=== PATIENT | male | born 1955 | race Caucasian/White ===

== ENCOUNTER 2018-03-08 07:44 | Outpatient (REF) | payer OTHER, SELFPAY ==
[2018-03-08 14:06] LABS: ALT 28 U/L (12-78); AST 29 U/L (15-37); Albumin 3.8 g/dL (3.4-5.0); Alkaline Phosphatase 78 U/L (46-116); Anion Gap 9.3 mmol/L (3-11); BUN 7 mg/dL (7-18); Bilirubin, Total 0.4 mg/dL (0.2-1.0); CO2 25.7 mmol/L (21.0-32.0); CREATININE 0.78 mg/dL (0.70-1.30); Calcium 8.9 mg/dL (8.5-10.1); Chloride 107 mmol/L (98-107); Cholesterol 115 mg/dL (50-200); Glucose 110 mg/dL (70-100); HDL Cholesterol 36 mg/dL (40-60); LDL CHOLESTEROL 62 mg/dL (<100); Potassium 4.1 mmol/L (3.5-5.1); Sodium 142 mmol/L (136-145); Total Protein 6.5 g/dL (6.4-8.2); Triglyceride 94 mg/dL (30-150)
== END 2018-03-08 08:04 ==
LOC: NCHCN 07:44
PROVIDERS: PCP Family Medicine; Visit Provider Family Medicine
DX: E11.9 Type 2 diabetes mellitus without complications (principal); E78.5 Hyperlipidemia, unspecified
CPT/HCPCS: 80053; 80061; 83721

== ENCOUNTER 2018-03-23 08:56 | Outpatient (CLI) | payer MEDICARE, SELFPAY ==
[2018-03-23 09:14] VITALS: BP 117/72; PULSE 75; RESP 18; TEMP 37.2; O2SAT 99
[2018-03-23 09:47] VITALS: BP 171/88; PULSE 80; RESP 20; O2SAT 99
--- NOTE | 2018-03-23 09:51 | DI.RAD_ITS ---
SYMPTOM/DIAGNOSIS: LUMBAR RADICULOPATHY C-ARM: Fluoroscopy Time: 25.3 sec 8.76 mGy Fluoroscopy was utilized by Dr. Edge during the performance of a lumbar spine injection. Please refer to the procedure report for complete details.
--- NOTE | 2018-03-23 09:59 | PDOC.PAIN ---
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 He had one epidural steroid injection at [facility] in December which gave him only 2 weeks relief. CARLINE PINO has been referred to the [facility] for lumbar epidural steroid injection. The patient was greeted by the nurse who verified patients name and . Patient was then taken to the fluoroscopy suite. The patient was interviewed and the medial record reviewed. There were no medical, pharmacologic, radiographic, or other structural contraindications to attempting fluoroscopically guided lumbar epidural steroid injection. Risks and expected side effects as well as potential benefits of the procedure were reviewed and voiced concerns expressed. The patient consent form was signed and witnessed. Standard patient time-out procedure was performed. The patient was placed in the prone position on the fluoroscopy table and automated blood pressure cuff and pulse oximeter applied. The skin entry point for entering/approaching the epidural space by a {L4-5} and marked. Following thorough chlorhexadine preparation of the skin and draping and 1% lidocaine infiltration of the skin entry point and subcutaneous tissues, a 17 gauge Touhy needle was placed under fluoroscopic guidance and with loss of resistance technique into the epidural space. Needle tip placement and depth were aided and confirmed by fluoroscopy. There was no paresthesia or return of blood or CSF through the needle. 1 cc's of Omnipaque 240 was injected with clear epidural spread confirmed with fluoroscopy. 40mg depomedrol (80 mg/mL-patient was having pain on injection so I did not give the full 80) was injected. There was not any unusual discomfort expressed by CARLINE PINO. Patient's vital signs were stable throughout the procedure and were as recorded in nursing records. Follow up plans and appointments were discussed with patient. Post procedure instruction was given as documented in nursing records and having met discharge criteria and was discharged from the [facility]. COMMENTS: He will follow-up as needed. I would not repeat them less he has significant lasting relief. If he did I would do a transforaminal injection. He is not getting better he will follow-up in the spine center for surgical evaluation.
[2018-03-23] MEDS: Omnipaque 240 MG/ML 50 ML BTL IJ (10:09)
[2018-03-23] MEDS: methylPREDNISolone ACETATE 80 MG/ML VIAL IM (10:09)
== END 2018-03-23 09:16 ==
PROVIDERS: PCP Family Medicine; Visit Provider Anesthesiology Pain Medicine
DX: M48.062 Spinal stenosis, lumbar region with neurogenic claudication (principal)
CPT/HCPCS: 62323; 72100; J1040; Q9967

== ENCOUNTER 2018-07-04 01:43 | Outpatient (CLI) | payer MEDICARE, SELFPAY ==
--- NOTE | 2018-07-04 07:40 | DI.US_ITS ---
SYMPTOMS/DIAGNOSIS: F/U AAA, I171.4 ULTRASOUND OF THE ABDOMINAL AORTA: An aneurysm was detected on MRI of the lumbar spine. Atherosclerotic changes are noted throughout the abdominal aorta. There is a distal fusiform appearing abdominal aortic aneurysm measuring 4.5 cm in greatest dimension. It terminates at the bifurcation. The iliac arteries are normal in diameter. There is no significant mural thrombus. IMPRESSION: 4.5 cm distal abdominal aortic aneurysm.
== END 2018-07-04 02:03 ==
PROVIDERS: PCP Family Medicine; Visit Provider Family Medicine
DX: I71.4 Abdominal aortic aneurysm, without rupture (principal)
CPT/HCPCS: 76775

== ENCOUNTER 2019-01-10 09:59 | Outpatient (REF) | payer MEDICARE, SELFPAY ==
[2019-01-10 12:59] LABS: Anion Gap 12.3 mmol/L (3-11); BUN 16 mg/dL (7-18); CO2 23.7 mmol/L (21.0-32.0); CREATININE 0.72 mg/dL (0.70-1.30); Calcium 9.1 mg/dL (8.5-10.1); Chloride 104 mmol/L (98-107); Glucose 114 mg/dL (70-100); Potassium 4.3 mmol/L (3.5-5.1); Sodium 140 mmol/L (136-145)
== END 2019-01-10 10:19 ==
LOC: NCHCN 09:59
PROVIDERS: PCP Family Medicine; Visit Provider Family Medicine
DX: I10 Essential (primary) hypertension (principal)
CPT/HCPCS: 80048

== ENCOUNTER 2019-01-17 00:32 | Outpatient (CLI) | payer MEDICARE, SELFPAY ==
--- NOTE | 2019-01-17 08:21 | DI.US_ITS ---
SYMPTOM/DIAGNOSIS: AAA I 71.4 ABDOMINAL AORTIC ULTRASOUND Routine examination was performed. Comparison 07/04/18 There is a distal abdominal aortic aneurysm measuring 4.4 cm in maximal diameter. The right iliac artery measures 1.5 cm in maximal diameter. The left iliac artery measures 1 cm in maximal diameter. IMPRESSION: Stable distal abdominal aortic aneurysm.
== END 2019-01-17 00:52 ==
PROVIDERS: PCP Family Medicine; Visit Provider Family Medicine
DX: I71.4 Abdominal aortic aneurysm, without rupture (principal)
CPT/HCPCS: 76775

== ENCOUNTER 2019-12-27 09:03 | Outpatient (REF) | payer MEDICARE, SELFPAY ==
[2019-12-27 17:18] LABS: Anion Gap 13.4 mmol/L (3-11); BUN 17 mg/dL (7-18); CO2 21.6 mmol/L (21.0-32.0); CREATININE 0.73 mg/dL (0.70-1.30); Calcium 9.2 mg/dL (8.5-10.1); Chloride 102 mmol/L (98-107); Glucose 123 mg/dL (74-106); Potassium 3.8 mmol/L (3.5-5.1); Sodium 137 mmol/L (136-145)
== END 2019-12-27 09:23 ==
LOC: NCHCN 09:03
PROVIDERS: PCP Family Medicine; Visit Provider Family Medicine
DX: I10 Essential (primary) hypertension (principal)
CPT/HCPCS: 80048

== ENCOUNTER 2020-01-19 02:43 | Outpatient (CLI) | payer MEDICARE, SELFPAY ==
--- NOTE | 2020-01-19 | DI.US_ITS ---
EXAM: US AAA DIAGNOSTIC CLINICAL HISTORY: F/U 4.4 CM AAA,I71.4 COMPARISON: US US AAA diagnostic from 01/17/2019 FINDINGS: Abdominal Aorta: Proximal: 2.3 x 2.0 cm Mid: 2.0 x 2.1 cm Distal: 4.6 x 4.8 cm Iliac's: Right: 1.7 by 1.5 cm Left: 1 x 1 cm atherosclerotic disease is seen. IMPRESSION: Increase in size of distal abdominal aortic aneurysm, now 4.8 cm maximally. DATA REPOSITORY:
== END 2020-01-19 03:03 ==
PROVIDERS: PCP Family Medicine; Visit Provider Family Medicine
DX: I71.4 Abdominal aortic aneurysm, without rupture (principal)
CPT/HCPCS: 76775

== ENCOUNTER 2020-11-07 20:23 | Outpatient (REF) | payer MEDICARE, SELFPAY ==
[2020-11-07 16:01] LABS: Anion Gap 11.5 mmol/L (3-11); BUN 17 mg/dL (7-18); CO2 28.5 mmol/L (21.0-32.0); CREATININE 0.9 mg/dL (0.70-1.30); Chloride 100 mmol/L (98-107); Glucose 127 mg/dL (74-106); Potassium 4.3 mmol/L (3.5-5.1); Sodium 140 mmol/L (136-145)
== END 2020-11-07 20:24 | disposition home or self-care (01) ==
LOC: NCHCN 20:23
PROVIDERS: PCP Family Medicine; Visit Provider Family Medicine
DX: I10 Essential (primary) hypertension (principal)
CPT/HCPCS: 80048

== ENCOUNTER 2020-11-28 01:40 | Outpatient (CLI) | payer MEDICARE, SELFPAY ==
--- NOTE | 2020-11-28 | DI.US_ITS ---
Exam(s) US AAA DIAGNOSTIC EXAM: US AAA DIAGNOSTIC CLINICAL HISTORY: F/U AAA,I71.4 COMPARISON: No exams were available for comparison FINDINGS: Abdominal Aorta: Atherosclerotic calcification is noted along the aorta and iliac arteries. Proximal: 2.7 cm Mid: 2.6 cm Distal: 5.1 x 5.0 cm mild mural thrombus. Iliacs: Right: 1.2 cm this represents a mild increase in size when compared with the previous exam w here it measured 4.8 cm. Left: 1.8 cm The doppler velocities are within normal limits. No significant atherosclerotic disease is seen. IMPRESSION: Mild interval increase in size of distal abdominal aortic aneurysm, now 5.1 cm in maximal dimension.. DATA REPOSITORY:
--- NOTE | 2020-11-28 08:55 | DI.CTLCSR_ITS ---
Exam(s) CT CHEST LUNG CANCER SCREEN EXAM: CT CHEST LUNG CANCER SCREEN CLINICAL HISTORY: SCREENING FOR LUNG CA, HEAVY SMOKER, F17.210 TECHNIQUE: Imaging Protocol: Axial computed tomography images with coronal and sagittal reformatted images were created and reviewed COMPARISON: No exams were available for comparison FINDINGS: Tracheobronchial tree: Patent where visualized. No bronchiectasis or peribronchial thickening. Mediastinum and [place]: 1.5 x 2.5 centimeter anterior mediastinal lymph node, and tear to the ascending aorta. No additional enlarged lymph nodes. Pulmonary parenchyma: No consolidation or dominant measurable mass. Minimal emphysematous changes. N o significant fibrotic changes. No infiltrate. Lung Nodules: None. Pleura: No effusion or pneumothorax. Heart: The heart is not dilated. The coronary arteries are heavily calcified. Aorta: Thoracic aorta non-dilated.[id number] calcification. Upper abdomen: Status post cholecystectomy. Nonobstructing stone mid left kidney. Bones: Degenerative disc changes. Soft Tissues: Unremarkable. IMPRESSION: No evidence of pulmonary nodules. Lung RADS Cat 1 - Negative: No nodules and definitely benign nodules S-2.5 centimeter anterior mediastinal lymph node. No additional enlarged lymph nodes. Lung-RADS 1.0 CATEGORIES: Category 0 - Prior chest CT exam(s) being located for comparison. Category 1 - Annual screening in 12 months. No nodules or definitely benign nodules. Category 2 - Annual screening in 12 months. Benign appearance. Nodules with low likelihood of becomin g active cancer. Category 3 - 6-month follow-up. Probably benign. Short-term follow-up suggested. Nodules with low lik elihood of becoming active cancer. Category 4A - 3-month follow-up and CT/PET if >8 mm in size. Suspicious finding. Findings which requi re additional testing. Category 4B - Findings which require additional testing and tissue sampling. Modifier S- Potentially clinically significant findings (non lung cancer) RADIATION DOSE DELIVERED: 84.48mGy.cm Total DLP 1.84mGy CTDIvol DATA REPOSITORY: All CT scans at this facility are submitted to the National Radiology Data Registry (NRDR) Dose Index Registry (DIR) with the [employer] (ACR). RADIATION OPTIMIZATION: All CT scans at this facility use at least one of these dose optimization te chniques: automated exposure control; mA and/or kV adjustment per patient size (includes targeted exa ms where dose is matched to clinical indication); or iterative reconstruction.
== END 2020-11-28 02:00 ==
PROVIDERS: PCP Family Medicine; Visit Provider Family Medicine
DX: Z12.2 Encounter for screening for malignant neoplasm of respiratory organs (principal); F17.210 Nicotine dependence, cigarettes, uncomplicated; I71.4 Abdominal aortic aneurysm, without rupture
CPT/HCPCS: 71271; 76775

== ENCOUNTER → 2021-04-24 09:29 | Outpatient (BNVA) | payer MEDICARE, SELFPAY | PROVIDERS: PCP Family Medicine; Referring Provider Family Medicine; Visit Provider Physical Therapy Assistant | DX: I71.4 Abdominal aortic aneurysm, without rupture (principal); Z12.11 Encounter for screening for malignant neoplasm of colon; I10 Essential (primary) hypertension ==

== ENCOUNTER 2021-07-15 02:46 | Outpatient (CLI) | payer MEDICARE, SELFPAY ==
--- NOTE | 2021-07-15 | DI.US_ITS ---
Exam(s) US AAA DIAGNOSTIC EXAM: US AAA DIAGNOSTIC CLINICAL HISTORY: AAA I71.4, F/U 12/09 US, 5.1 CM COMPARISON: US US AAA DIAGNOSTIC from 11/28/2020 FINDINGS: Abdominal Aorta: Proximal: 2.7 x 2.6 cm Mid: 2.6 x 2.4 cm Distal: 5.2 x 5.3 cm. This compares to 5.1 x 5.0 on the prior examination. Iliac's: Right: 1.4 x 1.4 cm Left: 1.3 x 1.4 cm The doppler velocities are within normal limits. IMPRESSION: 5.2 x 5.3 cm dist abdominal aortic aneurysm. This has shown slight interval increase in size compare d to the prior examination. DATA REPOSITORY:
== END 2021-07-15 03:06 ==
PROVIDERS: PCP Family Medicine; Visit Provider Family Medicine
DX: I71.4 Abdominal aortic aneurysm, without rupture (principal)
CPT/HCPCS: 76775

== ENCOUNTER 2021-11-18 15:53 | Outpatient (REF) | payer MEDICARE, SELFPAY ==
[2021-11-18 19:43] LABS: Anion Gap 12.5 mmol/L (3-11); BUN 17 mg/dL (7-18); CO2 23.5 mmol/L (21.0-32.0); CREATININE 0.9 mg/dL (0.70-1.30); Calcium 9.1 mg/dL (8.5-10.1); Calculated LDL 82 mg/dL (<100); Chloride 103 mmol/L (98-107); Cholesterol 148 mg/dL (<200); Glucose 112 mg/dL (74-106); HDL Cholesterol 31 mg/dL (40-60); Potassium 4.2 mmol/L (3.5-5.1); Sodium 139 mmol/L (136-145); Triglyceride 179 mg/dL (<150)
== END 2021-11-18 15:54 | disposition home or self-care (01) ==
LOC: NCHCN 15:53
PROVIDERS: PCP Family Medicine; Visit Provider Family Medicine
DX: I10 Essential (primary) hypertension (principal); E78.5 Hyperlipidemia, unspecified
CPT/HCPCS: 80048; 80061

== ENCOUNTER → 2021-12-24 01:33 | Outpatient (CLI) | payer MEDICARE, SELFPAY ==
--- NOTE | 2021-12-24 | DI.US_ITS ---
Exam(s) US AAA DIAGNOSTIC EXAM: US AAA DIAGNOSTIC CLINICAL HISTORY: ABDOMINAL AORTIC ANEURYSM, I71.4, 5.3 CM ON 06/2021 US COMPARISON: US US AAA DIAGNOSTIC from 07/15/2021 FINDINGS: Abdominal Aorta: Proximal: 2.8 x 2.5 cm Mid: 2.3 x 2.5 cm Distal: 5.5 x 5.1 cm fusiform shape aneurysm with mild mural thrombus. Iliacs: Right: 1.4 cm Left: 1.8 cm The doppler velocities are within normal limits. No significant atherosclerotic disease is seen. IMPRESSION: Question of mild interval increase in size distal abdominal aortic aneurysm versus measurement air, n ow measuring maximally 5.5 cm. DATA REPOSITORY:
--- NOTE | 2021-12-24 | DI.CTLCSR_ITS ---
Exam(s) CT CHEST LUNG CANCER SCREEN EXAM: CT CHEST LUNG CANCER SCREEN CLINICAL HISTORY: SCREENING FOR LUNG CA, CURRENT SMOKER, F17.210 TECHNIQUE: Imaging Protocol: Axial computed tomography images with coronal and sagittal reformatted images were created and reviewed. Low dose screening protocol. COMPARISON: CT CT CHEST LUNG CANCER SCREEN from 11/28/2020 FINDINGS: Tracheobronchial tree: No bronchiectasis or mucus plugging.. Mediastinum and [place]: Stable soft tissue nodule anterior to the ascending aorta. No fluid collection . Pulmonary parenchyma: No consolidation or dominant measurable mass. Mild emphysematous changes. Lung Nodules: None. Pleura: No effusion. No pneumothorax. Heart: The heart is not dilated. coronary artery calcifications are seen. Aorta: Thoracic aorta non-dilated. Upper abdomen: Status post cholecystectomy. Unremarkable. Bones: Unremarkable for age. Soft Tissues: Unremarkable. IMPRESSION: No suspicious pulmonary nodules. Lung RADS Cat 1 - Negative: No nodules and definitely benign nodules Lung-RADS 1.0 CATEGORIES: Category 0 - Prior chest CT exam(s) being located for comparison. Category 1 - Annual screening in 12 months. No nodules or definitely benign nodules. Category 2 - Annual screening in 12 months. Benign appearance. Nodules with low likelihood of becomin g active cancer. Category 3 - 6-month follow-up. Probably benign. Short-term follow-up suggested. Nodules with low lik elihood of becoming active cancer. Category 4A - 3-month follow-up and CT/PET if >8 mm in size. Suspicious finding. Findings which requi re additional testing. Category 4B - Findings which require additional testing and tissue sampling. Category 4X - Category 3 or 4 nodules with additional features or imaging findings that increases the suspicion of malignancy. Modifier S- Potentially clinically significant findings (non lung cancer) RADIATION DOSE DELIVERED: 92.38mGy.cm Total DLP 2.21mGy CTDIvol DATA REPOSITORY: All CT scans at this facility are submitted to the National Radiology Data Registry (NRDR) Dose Index Registry (DIR) with the [employer] (ACR). RADIATION OPTIMIZATION: All CT scans at this facility use at least one of these dose optimization te chniques: automated exposure control; mA and/or kV adjustment per patient size (includes targeted exa ms where dose is matched to clinical indication); or iterative reconstruction.
== END ==
PROVIDERS: PCP Family Medicine; Visit Provider Family Medicine
DX: Z12.2 Encounter for screening for malignant neoplasm of respiratory organs (principal); F17.210 Nicotine dependence, cigarettes, uncomplicated
CPT/HCPCS: 71271; 76775

== ENCOUNTER 2022-04-07 22:45 | Outpatient (REF) | payer MEDICARE, SELFPAY ==
[2022-04-07 20:02] LABS: HCT 43.2 % (40.0-50.0); HGB 14.9 g/dL (13.5-17.5); MCH 32.7 pg (27.0-33.0); MCHC 34.5 % (32.0-36.0); MCV 95 fL (80-95); MPV 11.6 fL (8.0-11.0); Platelet Count 220 10^3/uL (130-400); RBC 4.56 10^6/uL (4.36-5.78); RDW 12.7 % (11.8-14.1); WBC 8.71 10^3/uL (4.4-10.8)
[2022-04-07 20:12] LABS: Anion Gap 8.3 mmol/L (3-11); BUN 22 mg/dL (7-18); CO2 25.7 mmol/L (21.0-32.0); CREATININE 1.1 mg/dL (0.70-1.30); Calcium 9.2 mg/dL (8.5-10.1); Chloride 104 mmol/L (98-107); Estimated GFR 72.67 (mL/min/1.73m2); Glucose 115 mg/dL (74-106); Potassium 4.3 mmol/L (3.5-5.1); Sodium 138 mmol/L (136-145)
[2022-04-07 20:37] LABS: Hemoglobin A1C 6.3 % (<5.7)
== END 2022-04-07 22:46 | disposition home or self-care (01) ==
LOC: NCHCN 22:45
PROVIDERS: PCP Family Medicine; Visit Provider Family Medicine
DX: R73.03 Prediabetes (principal); I10 Essential (primary) hypertension; I71.40 Abdominal aortic aneurysm, without rupture, unspecified; F17.210 Nicotine dependence, cigarettes, uncomplicated
CPT/HCPCS: 80048; 85027; 83036

== ENCOUNTER 2022-07-08 09:47 | Outpatient (REF) | payer MEDICARE, SELFPAY ==
[2022-07-08 15:28] LABS: HCT 39.8 % (40.0-50.0); HGB 13.7 g/dL (13.5-17.5); MCH 30.9 pg (27.0-33.0); MCHC 34.4 % (32.0-36.0); MCV 90 fL (80-95); MPV 10.2 fL (8.0-11.0); Platelet Count 335 10^3/uL (130-400); RBC 4.44 10^6/uL (4.36-5.78); RDW 13.7 % (11.8-14.1); RDW-SD 44.9 fL; WBC 8.11 10^3/uL (4.4-10.8)
[2022-07-08 15:43] LABS: ALT 21 U/L (16-63); AST 19 U/L (15-37); Albumin 3.7 g/dL (3.4-5.0); Alkaline Phosphatase 139 U/L (46-116); Anion Gap 8.9 mmol/L (3-11); BUN 10 mg/dL (7-18); Bilirubin, Total 0.4 mg/dL (0.2-1.0); CO2 29.1 mmol/L (21.0-32.0); CREATININE 0.8 mg/dL (0.70-1.30); Calcium 9.8 mg/dL (8.5-10.1); Calculated LDL 70 mg/dL (<100); Chloride 98 mmol/L (98-107); Cholesterol 132 mg/dL (<200); Glucose 115 mg/dL (74-106); HDL Cholesterol 40 mg/dL (40-60); Potassium 4.1 mmol/L (3.5-5.1); Sodium 136 mmol/L (136-145); Total Protein 7.5 g/dL (6.4-8.2); Triglyceride 111 mg/dL (<150)
== END 2022-07-08 09:48 | disposition home or self-care (01) ==
LOC: NCHCN 09:47
PROVIDERS: PCP Family Medicine; Visit Provider Family Medicine
DX: I71.40 Abdominal aortic aneurysm, without rupture, unspecified (principal); F10.10 Alcohol abuse, uncomplicated; E78.5 Hyperlipidemia, unspecified; R58 Hemorrhage, not elsewhere classified; E11.40 Type 2 diabetes mellitus with diabetic neuropathy, unspecified; I10 Essential (primary) hypertension
CPT/HCPCS: 80053; 80061; 85027

== ENCOUNTER → 2023-03-15 14:21 | Outpatient (BNVA) | payer MEDICARE, SELFPAY | PROVIDERS: PCP Family Medicine; Referring Provider Family Medicine; Visit Provider Surgery | DX: M62.58 Muscle wasting and atrophy, not elsewhere classified, other site (principal); E11.9 Type 2 diabetes mellitus without complications; K29.70 Gastritis, unspecified, without bleeding; I71.40 Abdominal aortic aneurysm, without rupture, unspecified | CPT/HCPCS: 99213; 99243 ==

== ENCOUNTER → 2023-04-14 01:00 | Outpatient (CLI) | payer MEDICARE, SELFPAY ==
--- NOTE | 2023-04-14 07:41 | DI.CT_ITS ---
Exam(s) CT CHEST/ABD/PEL WO EXAM: CT CHEST/ABD/PEL WO CLINICAL HISTORY: hernia,GASTRITIS,AAA,SMOKER,CARDIOMEGALY,I51.7. TECHNIQUE: Imaging Protocol: Axial computed tomography images with coronal and sagittal reformatted images were created and reviewed CONTRAST MATERIAL: No IV contrast. Oral: yes / COMPARISON: CT CT CHEST LUNG CANCER SCREEN from 11/28/2020 US US AAA DIAGNOSTIC from 12/24/[address] CHEST LUNG CANCER SCREEN from 12/24/2021 FINDINGS: CHEST: Tracheobronchial tree: Patent where visualized. Pulmonary parenchyma: No consolidation or dominant measurable mass. Pleura: No effusion or pneumothorax. Lymph nodes: Within normal limits. Aorta: Thoracic portion non-dilated. Mild atherosclerotic changes. Heart: Dilated left ventricle. Severe coronary artery calcifications. No pericardial effusions. Mediastinum: Stable area of nodularity in the anterior mediastinum Bones: Unremarkable for age. No lytic or blastic lesions.No compression fractures. ABDOMEN and PELVIS: Liver: Normal density. No measurable mass. Gallbladder and biliary tract: Status post cholecystectomy. No evidence of stones or wall thickening . No biliary dilatation. Pancreas: Normal density, no abnormal calcifications or inflammatory process. Spleen: Normal. Kidneys: Normal size, contour and axis. Nonobstructing stones lower pole left kidney. No suspicious masses seen. Adrenal glands: No masses seen. Aorta: Stent now in place in aorta, new since prior ultrasound.. Maximal dimension 3.8 cm inferior portion. Underlying atherosclerotic changes. Lymph nodes: Within normal limits. Soft tissues: Bilateral iliopsoas bursitis. Bladder: Unremarkable. Bowel: No obstruction or bowel wall thickening. Stomach unremarkable. No visible ulcer. Mild divert iculosis lower descending colon. No diverticulitis. No visible mass. Peritoneal cavity: No ascites. No focal collection or mesenteric inflammatory response. Bones: Degenerative changes in the spine. Reproductive organs: Within normal limits. IMPRESSION: Chest CT: Dilated left ventricle.. No acute abnormality. Abdomen pelvis CT: Left renal calculi. A aortic aneurysm repair. No acute abnormality. RADIATION DOSE DELIVERED: Total DLP DATA REPOSITORY: All CT scans at this facility are submitted to the National Radiology Data Registry (NRDR) Dose Index Registry (DIR) with the [employer] (ACR). RADIATION OPTIMIZATION: All CT scans at this facility use at least one of these dose optimization te chniques: automated exposure control; mA and/or kV adjustment per patient size (includes targeted exa ms where dose is matched to clinical indication); or iterative reconstruction.
[2023-04-14] MEDS: Barium Sulfate 2% W/V-Creamy Vanilla Smoothie 450 ML BTL 900 ML PO (07:56)
== END ==
PROVIDERS: PCP Family Medicine; Visit Provider Surgery
DX: K29.70 Gastritis, unspecified, without bleeding (principal); E78.5 Hyperlipidemia, unspecified; I71.40 Abdominal aortic aneurysm, without rupture, unspecified; I51.7 Cardiomegaly
CPT/HCPCS: 71250; 74176

== ENCOUNTER → 2023-04-26 09:54 | Outpatient (BNVA) | payer MEDICARE, SELFPAY | PROVIDERS: PCP Family Medicine; Referring Provider Family Medicine; Visit Provider Surgery | DX: Z12.11 Encounter for screening for malignant neoplasm of colon (principal) ==

== ENCOUNTER 2023-07-30 13:35 | Outpatient (REF) | payer MEDICARE, SELFPAY ==
[2023-07-30 15:11] LABS: HCT 42.6 % (40.0-50.0); HGB 14.7 g/dL (13.5-17.5); MCH 32.1 pg (27.0-33.0); MCHC 34.5 % (32.0-36.0); MCV 93 fL (80-95); MPV 10.9 fL (8.0-11.0); Platelet Count 197 10^3/uL (130-400); RBC 4.58 10^6/uL (4.36-5.78); RDW 13.1 % (11.8-14.1); RDW-SD 44.3 fL; WBC 7.45 10^3/uL (4.4-10.8)
[2023-07-30 15:46] LABS: BUN 14 mg/dL (7-18); CREATININE 0.8 mg/dL (0.70-1.30); Calcium 9.6 mg/dL (8.5-10.1); Chloride 104 mmol/L (98-107); Estimated GFR 95.21 (mL/min/1.73m2); Glucose 127 mg/dL (74-106); Potassium 4.2 mmol/L (3.5-5.1); Sodium 140 mmol/L (136-145)
[2023-07-30 16:48] LABS: Hemoglobin A1C 6.2 % (<5.7)
== END 2023-07-30 13:36 | disposition home or self-care (01) ==
LOC: NCHCN 13:35
PROVIDERS: PCP Family Medicine; Visit Provider Family Medicine
DX: D64.9 Anemia, unspecified (principal)
CPT/HCPCS: 80048; 85027; 83036

== ENCOUNTER → 2023-08-30 09:32 | Outpatient (BNVA) | payer MEDICARE, SELFPAY | PROVIDERS: PCP Family Medicine; Referring Provider Family Medicine; Visit Provider Podiatrist | DX: B35.1 Tinea unguium (principal); I73.9 Peripheral vascular disease, unspecified; L60.3 Nail dystrophy; M48.061 Spinal stenosis, lumbar region without neurogenic claudication; Z72.0 Tobacco use; Z78.9 Other specified health status | CPT/HCPCS: 11721 ==

== ENCOUNTER → 2023-12-01 08:27 | Outpatient (BNVA) | payer MEDICARE, SELFPAY | PROVIDERS: PCP Family Medicine; Referring Provider Family Medicine; Visit Provider Podiatrist | DX: B35.1 Tinea unguium (principal); I73.9 Peripheral vascular disease, unspecified; L60.3 Nail dystrophy; Z72.0 Tobacco use; Z78.9 Other specified health status; M48.061 Spinal stenosis, lumbar region without neurogenic claudication; E11.42 Type 2 diabetes mellitus with diabetic polyneuropathy; R09.89 Other specified symptoms and signs involving the circulatory and respiratory systems; R60.0 Localized edema; R20.8 Other disturbances of skin sensation; R20.2 Paresthesia of skin | CPT/HCPCS: 11721 ==

== ENCOUNTER → 2024-02-23 08:19 | Outpatient (BNVA) | payer MEDICARE, SELFPAY | PROVIDERS: PCP Family Medicine; Visit Provider Podiatrist | DX: L60.3 Nail dystrophy (principal); B35.1 Tinea unguium; I73.89 Other specified peripheral vascular diseases; M48.061 Spinal stenosis, lumbar region without neurogenic claudication; E11.40 Type 2 diabetes mellitus with diabetic neuropathy, unspecified; Z72.0 Tobacco use; Z78.9 Other specified health status; R60.0 Localized edema; R09.89 Other specified symptoms and signs involving the circulatory and respiratory systems; R20.8 Other disturbances of skin sensation | CPT/HCPCS: 11721 ==

== ENCOUNTER 2024-05-26 00:07 | Outpatient (CLI) | payer MEDICARE, SELFPAY ==
--- NOTE | 2024-05-26 08:04 | DI.CTLCSR_ITS ---
Exam(s) CT CHEST LUNG CANCER SCREEN EXAM: CT CHEST LUNG CANCER SCREEN CLINICAL HISTORY: Nicotine dependence, cigarettes, F17.210 TECHNIQUE: Imaging Protocol: Axial computed tomography images with coronal and sagittal reformatted images were created and reviewed. Lung Computer Aided Detection (CAD) was utilized. COMPARISON: CT CT CHEST LUNG CANCER SCREEN from 12/24/[address] CHEST/ABD/PEL WO from 04/14/2023 FINDINGS: Tracheobronchial tree: Patent where visualized. No bronchiectasis. Pulmonary parenchyma: No consolidation or dominant measurable mass. No architectural distortion. Lung Nodules: None. Mediastinum and [place]: No dominant adenopathy or fluid collection. The esophagus is unremarkable.The a nterior mediastinal nodule is unchanged and likely reflects a lymph node. Thyroid gland: Unremarkable. Lymph nodes: Unremarkable. Pleura: No effusion or pneumothorax. Heart: The heart is not dilated. Three vessel coronary artery calcification is present. No pericardi al effusion. Aorta: Thoracic aorta non-dilated.Atherosclerotic calcification is present. Upper abdomen: Status post cholecystectomy. Soft Tissues: Unremarkable. Bones: Within normal limits. IMPRESSION: No suspicious nodules. Lung RADS Cat 1 - Negative: No nodules and definitely benign nodules Lung-RADS 1.0 CATEGORIES: Category 0 - Prior chest CT exam(s) being located for comparison. Category 1 - Annual screening in 12 months. No nodules or definitely benign nodules. Category 2 - Annual screening in 12 months. Benign appearance. Nodules with low likelihood of becomin g active cancer. Category 3 - 6-month follow-up. Probably benign. Short-term follow-up suggested. Nodules with low lik elihood of becoming active cancer. Category 4A - 3-month follow-up and CT/PET if >8 mm in size. Suspicious finding. Findings which requi re additional testing. Category 4B - Findings which require additional testing and tissue sampling. Suspicious finding. Category 4X - Category 3 or 4 nodules with additional features or imaging findings that increases the suspicion of malignancy. Modifier S- Potentially clinically significant finding. (Non lung cancer) RADIATION DOSE DELIVERED: 38.85mGy.cm Total DLP 38.85mGy.cmTotal DLP DATA REPOSITORY: All CT scans at this facility are submitted to the National Radiology Data Registry (NRDR) Dose Index Registry (DIR) with the [employer] (ACR). RADIATION OPTIMIZATION: All CT scans at this facility use at least one of these dose optimization te chniques: automated exposure control; mA and/or kV adjustment per patient size (includes targeted exa ms where dose is matched to clinical indication); or iterative reconstruction.
== END 2024-05-26 00:27 ==
PROVIDERS: PCP Student in an Organized Health Care Education/Training Program; Visit Provider Student in an Organized Health Care Education/Training Program
DX: F17.210 Nicotine dependence, cigarettes, uncomplicated (principal); Z12.2 Encounter for screening for malignant neoplasm of respiratory organs
CPT/HCPCS: 71271

== ENCOUNTER → 2024-07-03 09:22 | Outpatient (BNVA) | payer MEDICARE, SELFPAY | PROVIDERS: PCP Student in an Organized Health Care Education/Training Program; Referring Provider Family Medicine; Visit Provider Podiatrist | DX: L60.3 Nail dystrophy (principal); B35.1 Tinea unguium; I73.89 Other specified peripheral vascular diseases; M48.061 Spinal stenosis, lumbar region without neurogenic claudication; E11.40 Type 2 diabetes mellitus with diabetic neuropathy, unspecified; Z72.0 Tobacco use; F10.90 Alcohol use, unspecified, uncomplicated; R09.89 Other specified symptoms and signs involving the circulatory and respiratory systems; L65.9 Nonscarring hair loss, unspecified; R20.8 Other disturbances of skin sensation; R23.8 Other skin changes | CPT/HCPCS: 11721 ==

== ENCOUNTER 2024-08-08 14:59 | Outpatient (REF) | payer MEDICARE, SELFPAY ==
[2024-08-08 16:39] LABS: Anion Gap 9.9 mmol/L (3-11); BUN 21 mg/dL (7-18); CO2 27.1 mmol/L (21.0-32.0); Calcium 9.7 mg/dL (8.5-10.1); Chloride 103 mmol/L (98-107); Estimated GFR 80.47 (mL/min/1.73m2); Glucose 119 mg/dL (74-106); Potassium 4.1 mmol/L (3.5-5.1); Sodium 140 mmol/L (136-145)
== END 2024-08-08 15:00 | disposition home or self-care (01) ==
LOC: NCHCN 14:59
PROVIDERS: PCP Student in an Organized Health Care Education/Training Program; Visit Provider Student in an Organized Health Care Education/Training Program
DX: I10 Essential (primary) hypertension (principal)
CPT/HCPCS: 80048

== ENCOUNTER → 2024-10-09 08:48 | Outpatient (BNVA) | payer MEDICARE, SELFPAY | PROVIDERS: PCP Student in an Organized Health Care Education/Training Program; Referring Provider Student in an Organized Health Care Education/Training Program; Visit Provider Podiatrist | DX: L60.3 Nail dystrophy (principal); B35.1 Tinea unguium; I73.89 Other specified peripheral vascular diseases; M48.061 Spinal stenosis, lumbar region without neurogenic claudication; Z72.0 Tobacco use; Z78.9 Other specified health status; E11.40 Type 2 diabetes mellitus with diabetic neuropathy, unspecified; L65.9 Nonscarring hair loss, unspecified; R20.8 Other disturbances of skin sensation; R23.4 Changes in skin texture; L60.8 Other nail disorders; L60.2 Onychogryphosis; M79.674 Pain in right toe(s) | CPT/HCPCS: 11721 ==

== ENCOUNTER → 2025-01-15 08:19 | Outpatient (BNVA) | payer MEDICARE, SELFPAY | PROVIDERS: PCP Student in an Organized Health Care Education/Training Program; Referring Provider Student in an Organized Health Care Education/Training Program; Visit Provider Podiatrist | DX: B35.1 Tinea unguium (principal); I73.9 Peripheral vascular disease, unspecified; L60.3 Nail dystrophy; M48.061 Spinal stenosis, lumbar region without neurogenic claudication; E11.42 Type 2 diabetes mellitus with diabetic polyneuropathy; Z72.0 Tobacco use; F10.99 Alcohol use, unspecified with unspecified alcohol-induced disorder; R09.89 Other specified symptoms and signs involving the circulatory and respiratory systems; L65.9 Nonscarring hair loss, unspecified; R20.8 Other disturbances of skin sensation; R23.4 Changes in skin texture; R23.8 Other skin changes; L60.8 Other nail disorders; L60.2 Onychogryphosis | CPT/HCPCS: 11721 ==

== ENCOUNTER 2025-01-25 22:54 | Outpatient (CLI) | payer MEDICARE, SELFPAY ==
--- NOTE | 2025-01-25 | DI.RAD_ITS ---
Exam(s) XR LUMBAR SPINE COMPLETE EXAM: XR LUMBAR SPINE COMPLETE CLINICAL HISTORY: SCIATICA LEFT SIDE ICD-10: M54.32. TECHNIQUE: 2D digital imaging was performed. COMPARISON: CT CT CHEST/ABD/PEL WO from 04/14/2023 FINDINGS: Five views: There is no evidence of fracture. Has been multilevel removal of posterior osseous elements at L 2, L3, and L4 levels. There is multilevel disc space narrowing at L1-2, L3-4, L4-5, and L5-S1 levels. Mild retro listhesis L3 upon L4. There are moderate facet joint degenerative changes at multiple levels. Sacroiliac joints appear unremarkable for age. There is no scoliosis. Abdominal aorta is calcified and there is an infrarenal abdominal aortic aneurysm evident. There are also left renal calculi noted, seen on prior CT scan of March 2023. One of these calculi is medially located and may be in the upper left ureter. IMPRESSION: Multilevel laminectomies. No fractures. No osseous lesions. Left kidney stones with 1 of the calculi possibly in the upper left ureter. DATA REPOSITORY: RADIATION DOSE DELIVERED:
--- NOTE | 2025-01-25 20:23 | DI.VRAD_ITS ---
PROCEDURE INFORMATION: Exam: XR Lumbosacral Spine Exam date and time: 01/25/2025 8:07 PM Age: 69 years old Clinical indication: Low back pain; Additional info: Sciatica left side TECHNIQUE: Imaging protocol: Radiologic exam of the lumbosacral spine. Views: 4 or 5 views. COMPARISON: OT [facility]R [facility] lumbar sp 2V 03/23/2018 9:44 AM FINDINGS: Bones/joints: The bones are demineralized. L2, L3-L4 laminotomy. Moderate to severe multilevel disc space narrowing most pronounced at L1-L2 and L5-S1. Endplate and facet hypertrophy. These findings predispose to neural foraminal and central canal stenosis. No acute fracture or subluxation. Soft tissues: Unremarkable. Intraperitoneal space: Right upper quadrant clips, probable cholecystectomy. Left upper quadrant surgical clips. Vasculature: Infrarenal aortic aneurysm of approximately 37 mm radiographically, measured [address] IMPRESSION: 1. No acute bony pathology. 2. L2, L3-L4 laminotomy. 3. Degenerative changes. 4. Infrarenal aortic aneurysm of approximately 37 mm radiographically, measured [address] Dictated and Authenticated by: Saima Solomon MD. Orderin Sidney Gonzalez MD
== END 2025-01-25 23:14 ==
PROVIDERS: PCP Student in an Organized Health Care Education/Training Program; Visit Provider Physician Assistant Medical
DX: M54.32 Sciatica, left side (principal)
CPT/HCPCS: 72110

== ENCOUNTER 2025-01-30 13:04 | Outpatient (REF) | payer MEDICARE, SELFPAY ==
[2025-02-01 17:03] LABS: COMMENT (LAB VIEW ONLY) 84.44 mg/dL; Microalb ug/mg Crea 41.4 ug/mg Cr
== END 2025-01-30 13:05 | disposition home or self-care (01) ==
LOC: NCHCN 13:04
PROVIDERS: PCP Student in an Organized Health Care Education/Training Program; Visit Provider Student in an Organized Health Care Education/Training Program
DX: E11.9 Type 2 diabetes mellitus without complications (principal)
CPT/HCPCS: 82043; 82570

== ENCOUNTER → 2025-04-16 08:27 | Outpatient (BNVA) | payer MEDICARE, SELFPAY | PROVIDERS: PCP Student in an Organized Health Care Education/Training Program; Referring Provider Student in an Organized Health Care Education/Training Program; Visit Provider Podiatrist | DX: L60.3 Nail dystrophy (principal); B35.1 Tinea unguium; I73.89 Other specified peripheral vascular diseases; E11.42 Type 2 diabetes mellitus with diabetic polyneuropathy; M48.061 Spinal stenosis, lumbar region without neurogenic claudication; Z72.0 Tobacco use; Z78.9 Other specified health status; R09.89 Other specified symptoms and signs involving the circulatory and respiratory systems; L65.9 Nonscarring hair loss, unspecified; R20.8 Other disturbances of skin sensation; R23.8 Other skin changes; R23.4 Changes in skin texture; L60.8 Other nail disorders; L60.2 Onychogryphosis | CPT/HCPCS: 11721; 93922 ==